=== PATIENT | male | born 1965 | race Caucasian/White ===

== ENCOUNTER 2018-02-01 16:05 | Emergency (ER) | payer OTHER ==
--- NOTE | 2018-02-01 16:18 | UC ---
Ear Complaint HPI - HPI Summary HPI Summary: pt c/o FB sensation in his L ear for about 2 days. states worse after he tried to flush it while in the shower. no uri, fever or discharge. - History of Current Complaint Stated Complaint: LEFT EAR COMPLAINT Time Seen by Provider: 02/01/18 16:12 Hx Obtained From: Patient Alleviating Factors: Nothing Associated Signs/Symptoms: Negative: Trauma to Ear - Allergies/Home Medications Allergies/Adverse Reactions: Allergies Allergy/AdvReac Type Severity Reaction Status Date / Time No Known Allergies Allergy Verified 02/01/18 16:17 PMH/Surg Hx/FS Hx/Imm Hx - Additional Past Medical History Additional PMH: Subdural hematoma from injury - Surgical History Surgical History: Yes Surgery Procedure, Year, and Place: SUB DURAL HEMATOMA SX. CRICOIDECTOMY. TRACH - Social History Occupation: Employed Full-time Lives: With Family Substance Use Type: None - Immunization History Vaccination Up to Date: Yes Review of Systems Constitutional: Negative Skin: Negative Eyes: Negative ENT: Other - FB sensation L ear Respiratory: Negative Cardiovascular: Negative Gastrointestinal: Negative Genitourinary: Negative Motor: Negative Neurovascular: Negative Musculoskeletal: Negative Neurological: Negative Psychological: Negative Is Patient Immunocompromised?: No All Other Systems Reviewed And Are Negative: Yes Physical Exam Triage Information Reviewed: Yes Appearance: Well-Appearing Vital Signs Reviewed: Yes Eyes: Positive: Conjunctiva Clear ENT: Positive: Pharynx normal, TMs normal - R. Obscured by wax on L.. Negative : Nasal congestion, Nasal drainage Neck: Positive: Supple, Nontender, No Lymphadenopathy, Other: - post op scar anterior neck Respiratory: Positive: Lungs clear, Normal breath sounds Cardiovascular: Positive: RRR, No Murmur Abdomen Description: Positive: Nontender, No Organomegaly, Soft Bowel Sounds: Positive: Present Musculoskeletal: Positive: ROM Intact Neurological: Positive: Alert Psychological: Positive: Age Appropriate Behavior Skin Exam: Normal Re-Evaluation - Re-Evaluation Second Eval Change: Improved - L ear clear post flush. TM rodriguez. pt noted hearing is better. Ear Complaint Course/Dx - Course Course Of Treatment: no OM or OE - Differential Dx/Diagnosis Provider Diagnoses: Cerumen impaction L canal Discharge - Sign-Out/Discharge Documenting (check all that apply): Discharge - Discharge Plan Condition: Improved Disposition: HOME Patient Education Materials: Cerumen Impaction (ED) Referrals: Digiovanna,Sandeep J, MD [Primary Care Provider] - If Needed - Billing Disposition and Condition Condition: IMPROVED Disposition: HOME
== END 2018-02-01 16:53 | disposition home or self-care (01) ==
LOC: UCCORT 16:05
DX: H61.22 Impacted cerumen, left ear (principal)
CPT/HCPCS: 99202; G0463

== ENCOUNTER 2018-12-02 20:56 | Emergency (ER) | payer OTHER ==
[2018-12-02] MEDS ORDERED: Albuterol 2.5 MG/3 ML NEB.SOL* (0.083%) INH ONE (22:14)
--- NOTE | 2018-12-02 22:15 | UC ---
General HPI - HPI Summary HPI Summary: 4 day hx of cough, wheezing and sob. no cp or fever. no hx asthma or copd. also c/o being light headed and sometimes dizzy as well. no black or tarry stool. BP at triage 85/67. states his BP is usually normal and not that low. no hx asthma or copd. - History of Current Complaint Chief Complaint: UCRespiratory Stated Complaint: COUGH Time Seen by Provider: 12/02/18 22:09 Hx Obtained From: Patient, Family/Welt Stitch Cleaner Pain Intensity: 7 Associated Signs & Symptoms: Negative: Chest Pain, Diaphoresis - Allergy/Home Medications Allergies/Adverse Reactions: Allergies Allergy/AdvReac Type Severity Reaction Status Date / Time No Known Allergies Allergy Verified 12/02/18 22:01 PMH/Surg Hx/FS Hx/Imm Hx Previously Healthy: Yes - Surgical History Surgical History: Yes Surgery Procedure, Year, and Place: SUB DURAL HEMATOMA SX. CRICOIDECTOMY. [facility] - Family History Known Family History: Positive: Other - no DVT or PE history - Social History Lives: With Family Alcohol Use: Occasionally Substance Use Type: None Smoking Status (MU): Never Smoked Tobacco - Immunization History Vaccination Up to Date: Yes Review of Systems All Other Systems Reviewed And Are Negative: Yes Constitutional: Positive: Negative Skin: Positive: Negative Eyes: Positive: Negative ENT: Positive: Negative Respiratory: Positive: Shortness Of Breath, Cough Cardiovascular: Positive: Negative Gastrointestinal: Positive: Negative Genitourinary: Positive: Negative Motor: Positive: Negative Neurovascular: Positive: Negative Musculoskeletal: Positive: Negative Neurological: Positive: Negative Psychological: Positive: Negative Is Patient Immunocompromised?: No Physical Exam Triage Information Reviewed: Yes Appearance: Well-Appearing Vital Signs: Initial Vital Signs Temp 97.6 F 12/02/18 21:57 Pulse 73 12/02/18 21:57 Resp 16 12/02/18 21:57 BP 85/67 12/02/18 21:57 Pulse Ox 100 12/02/18 21:57 Vital Signs Reviewed: Yes Eyes: Positive: Conjunctiva Clear ENT: Positive: Pharynx normal, TMs normal. Negative: Nasal congestion, Nasal drainage Neck: Positive: Supple, No Lymphadenopathy Respiratory: Positive: No respiratory distress, Decreased breath sounds, Wheezing Cardiovascular: Positive: RRR, No Murmur Abdomen Description: Positive: Nontender, No Organomegaly, Soft Bowel Sounds: Positive: Present Musculoskeletal: Positive: ROM Intact Neurological: Positive: Alert Psychological: Positive: Age Appropriate Behavior Skin Exam: Normal Diagnostics - Radiology No standard instances Radiology Interpretation Completed By: ED Physician - wet read=nad Re-Evaluation - Re-Evaluation First Eval Re-Evaluation Time: 22:43 Change: Improved - much better aeration and lungs clear post tx. pt notes breathing easier. Course/Dx - Course Course Of Treatment: repeat BP's for orthostatics are in the 120's/70's. i think the initial BP was an error. cxr wet read=nad. - Differential Dx - Multi-Symptom Differential Diagnoses: Other - pneumonia. bronchitis. no concern for acs. - Diagnoses Provider Diagnosis: Bronchitis Discharge - Sign-Out/Discharge Documenting (check all that apply): Patient Departure All imaging exams completed and their final reports reviewed: No - Discharge Plan Condition: Stable Disposition: HOME Patient Education Materials: Acute Bronchitis (ED) Referrals: Sandeep Lu MD [Primary Care Provider] - 3 Days Additional Instructions: use the albuterol inhaler 2 puffs every 6 hours - Billing Disposition and Condition Condition: STABLE Disposition: Home - Attestation Statements Provider Attestation: I was available for consult. This patient was seen by the ALAN. The patient was not presented to, seen by, or examined by me. -Hawk
[2018-12-02 22:25] VITALS: BP 120/78
[2018-12-02] MEDS ORDERED: Albuterol HFA INHALER* 8 gm MDI INH ONE (22:47)
--- NOTE | 2018-12-03 11:12 | UC ---
- Progress Note Progress Note: Chest x-ray reading from December 02, 2018 I radiologist comes back as no acute disease process. The provider interpretation from the same date is also no acute disease process therefore there is no discrepancy. Re-Evaluation - Re-Evaluation First Eval Re-Evaluation Time: 22:43 Change: Improved - much better aeration and lungs clear post tx. pt notes breathing easier. Course/Dx - Diagnoses Provider Diagnoses: Bronchitis Discharge - Sign-Out/Discharge Documenting (check all that apply): Patient Departure All imaging exams completed and their final reports reviewed: Yes - Discharge Plan Condition: Stable Disposition: HOME Patient Education Materials: Acute Bronchitis (ED) Referrals: Sandeep Lu MD [Primary Care Provider] - 3 Days Additional Instructions: use the albuterol inhaler 2 puffs every 6 hours - Billing Disposition and Condition Condition: STABLE Disposition: Home
== END 2018-12-02 22:56 | disposition home or self-care (01) ==
LOC: UCCORT 20:56
DX: J40 Bronchitis, not specified as acute or chronic (principal); R42 Dizziness and giddiness
CPT/HCPCS: 71046; 99213; A9270-GY; G0463

== ENCOUNTER 2019-04-07 17:32 | Emergency (ER) | payer OTHER ==
--- OUTSIDE RECORDS SUMMARY | 2019-04-07 17:37 | XMS REPORT | Continuity of Care Document ---
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 Payers Date Identification Numbers Payment Provider Subscriber Effective: 2016 Policy Number: [id number] [employer] Willy Carmona PayID: [id number] [address] [place] [address] Onset: 2017 Policy Number: [id number] [facility] Willy Carmona PayID: [id number] [facility] [address] [place] [address] Effective: 2015 Policy Number: [id number] [employer] Willy Carmona Expires: 2016 PayID: [id number] [address] [address] [place] [address] Problems Active Problems Provider Date Restless legs Sandeep Lu MD Onset: 08/08/2012 Testicular hypofunction Sandeep Lu MD Onset: 03/28/2012 Vitamin D deficiency Sandeep Lu MD Onset: 03/28/2012 Obstructive sleep apnea syndrome Sandeep Lu MD Onset: 10/02/2010 Elevated blood-pressure reading without Sandeep Lu MD Onset: 2009 diagnosis of hypertension Gastroesophageal reflux disease Sandeep Lu MD Onset: 10/11/2009 Obesity Sandeep Lu MD Onset: 10/11/2009 Mixed hyperlipidemia Sandeep Lu MD Onset: 10/13/2008 Insomnia Sandeep Lu MD Onset: 11/02/2014 Headache Sandeep Lu MD Onset: 11/14/2016 Inactive Problems Stenosis of larynx Sandeep Lu MD Onset: 04/21/2010 Inactive: 11/18/2017 Injury of facial nerve Sandeep Lu MD Onset: 04/06/2008 Inactive: 11/18/2017 Pure hypercholesterolemia Sandeep Lu MD Onset: 11/02/2014 Inactive: 11/18/2017 Social History Type Date Description Comments Sex Unknown Marital Status Single Lives With Female Partner Occupation [employer]s [employer] ETOH Use Rarely consumes alcohol Tobacco Use Start: Unknown Patient has never smoked Smoking Status Reviewed: 04/03/19 Patient has never smoked Allergies, Adverse Reactions, Alerts Description No Known Drug Allergies Medications Active Medications SIG Qnty Indications Ordering Date Provider Fluticasone 1 [place] Per 16units H66.003 Wendyiovankeon, 05/21/2018 Propionate Nostril Twice A MD Sandeep 50mcg/Act Day For Congestion Suspension Naproxen Sodium take one tablet by 60tabs M77.12 Digiovanna, 01/13/2018 550mg mouth twice a day MD Sandeep Tablets with food as needed for elbow pain and numbness Excedrin Migraine as needed migraine OTC Unknown has [id number] Tablets Vitamin D-1000 3 by mouth every OTC E55.9 Digiovanna, Maximum Strength day MD Sandeep 1000Unit Tablets History Medications Omeprazole 1 by mouth 30caps R10.9 Wendyiolee, 02/11/2019 - 40mg Capsules every Am MD Sandeep 04/03/2019 Ranitidine HCL take 1 capsule 60caps R10.9 Wendyiovankeon, 01/26/2019 - 150mg twice daily MD Sandeep 02/11/2019 Capsules before meals Amoxicillin/Clavulanat 1 pill twice a 20tabs H66.003 Wendyiovankeon, 2017 - e Potassium day with food MD Sandeep 06/10/2018 875-125mg for 10 days Tablets Amoxicillin 1 by mouth 20tabs H66.003 Wendyiovankeon, 05/21/2018 - 875mg Tablets twice a day MD Sandeep 05/31/2018 for 10 days Triamcinolone apply to rash 15gm R21 Digiovankeon, 04/19/2017 - Acetonide 2-3 times Roxanna, CORINA 11/19/2018 0.1% Ointment daily for itching Naproxen Sodium 1 by mouth 60tabs M54.5 Digiovanna, 04/16/2016 - 550mg every 12 hours Roxanna, CORINA 04/01/2017 Tablets for 2 weeks then as needed Ketoconazole Apply Twice A 30units B35.6 Digiovanna, 04/06/2016 - 2% Cream Day To Rash as MD Sandeep 11/19/2018 Directed Cyclobenzaprine HCL take 1 tablet 20tabs M54.5 Wendyiolee, 04/06/2016 - 10mg by mouth every MD Sandeep 05/06/2016 Tablets night at bedtime as needed for back spasm/pain Amitriptyline HCL take tablet by 30tabs R51 Tabitha, 12/30/2015 - 25mg mouth at MD Sandeep 01/25/2016 Tablets bedtime Sumatriptan Succinate take one 30tabs R51 Wendyiolee, 12/30/2015 - tablet by MD Sandeep 08/14/2017 50mg Tablets mouth once a day as needed for migraine headache, may repeat once; maximum daily dose=2, max 6/week Amoxicillin 1 by mouth Unknown 12/26/2015 - 500mg three times a 01/05/2016 Capsules day Amoxicillin 1 by mouth 20tabs 388.70 Andrew Gasca, 07/08/2015 - 875mg Tablets twice a day DO 07/18/2015 Fluticasone Propionate 1 spray each 16units 388.70 Andrew Gasca, 2014 - nostril twice DO 07/18/2015 50mcg/Act Suspension a day No Active Medications Unknown 11/02/2014 - 11/02/2014 Zolpidem Tartrate 1/2 or 1 po 30tabs Digiovankeon, 02/16/2013 - 5mg qhs prn sleep Sandeep Mora MD 11/02/[address] 1 by mouth Unknown - 500mg Tablets twice a day 11/19/2018 Immunizations CPT Code Status Date Vaccine Reaction Lot # [id number] Given 09/02/2017 Tdap (Adacel) Ages 7 And Above Only 50425 Given 08/03/2009 Afluria Or Fluvirin Flu Vac Intramuscular Q2039 Refused 11/19/2018 Flu Vaccine NOS NOT GETTING 80330 Refused 08/08/2012 Afluria Or Fluvirin Flu Vac Intramuscular DOESN'T WANT Vital Signs Date Vital Result Comment 04/03/2019 2:32pm Body Temperature 98.8 F tympanic Weight 206.00 lb Heart Rate 76 /min BP Systolic 100 mmHg BP Diastolic 70 mmHg Respiratory Rate 16 /min Height 67.5 inches 5'7.50" BMI (Body Mass Index) 31.8 kg/m2 02/11/2019 10:35am Weight 206.00 lb Heart Rate 60 /min BP Systolic 122 mmHg BP Diastolic 76 mmHg Respiratory Rate 18 /min 11/19/2018 2:45pm Weight 203.00 lb Heart Rate 72 /min BP Systolic 120 mmHg BP Diastolic 68 mmHg Respiratory Rate 18 /min Height 67.5 inches 5'7.50" BMI (Body Mass Index) 31.3 kg/m2 09/23/2018 11:28am Body Temperature 98.8 F tympanic Weight 217.00 lb Heart Rate 76 /min BP Systolic 120 mmHg BP Diastolic 76 mmHg Respiratory Rate 18 /min Height 67.5 inches 5'7.50" BMI (Body Mass Index) 33.5 kg/m2 05/31/2018 10:32am Body Temperature 97.9 F Weight 216.00 lb Heart Rate 70 /min BP Systolic 114 mmHg BP Diastolic 78 mmHg Respiratory Rate 18 /min Height 67.5 inches 5'7.50" BMI (Body Mass Index) 33.3 kg/m2 05/21/2018 1:31pm Body Temperature 97.6 F Weight 203.00 lb Heart Rate 60 /min BP Systolic 118 mmHg BP Diastolic 62 mmHg Respiratory Rate 18 /min Height 67.5 inches 5'7.50" O2 % BldC Oximetry 97 % Ra BMI (Body Mass Index) 31.3 kg/m2 01/13/2018 3:16pm Weight 203.00 lb Heart Rate 74 /min BP Systolic 118 mmHg BP Diastolic 74 mmHg Respiratory Rate 18 /min Height 67.5 inches 5'7.50" BMI (Body Mass Index) 31.3 kg/m2 11/18/2017 2:56pm Weight 205.00 lb Heart Rate 72 /min BP Systolic 120 mmHg BP Diastolic 70 mmHg Respiratory Rate 18 /min Height 67.5 inches 5'7.50" BMI (Body Mass Index) 31.6 kg/m2 09/18/2017 3:58pm Weight 208.00 lb Heart Rate 74 /min BP Systolic 122 mmHg BP Diastolic 72 mmHg Respiratory Rate 18 /min Height 68 inches 5'8" BMI (Body Mass Index) 31.6 kg/m2 08/14/2017 4:25pm Body Temperature 98.9 F tympanic Weight 213.00 lb Heart Rate 80 /min BP Systolic 120 mmHg BP Diastolic 74 mmHg Respiratory Rate 18 /min Height 68 inches 5'8" BMI (Body Mass Index) 32.4 kg/m2 06/17/2017 2:38pm Weight 208.00 lb Heart Rate 74 /min BP Systolic 102 mmHg BP Diastolic 60 mmHg Height 68 inches 5'8" BMI (Body Mass Index) 31.6 kg/m2 04/19/2017 8:34am Weight 208.00 lb Heart Rate 72 /min BP Systolic 118 mmHg BP Diastolic 70 mmHg Respiratory Rate 18 /min Height 68 inches 5'8" BMI (Body Mass Index) 31.6 kg/m2 11/14/2016 11:01am Weight 210.00 lb Heart Rate 74 /min BP Systolic 120 mmHg BP Diastolic 80 mmHg Respiratory Rate 18 /min Height 68 inches 5'8" BMI (Body Mass Index) 31.9 kg/m2 07/04/2016 3:34pm Weight 209.00 lb Heart Rate 74 /min BP Systolic 134 mmHg BP Diastolic 76 mmHg Respiratory Rate 17 /min Height 68 inches 5'8" 07/04/16 BMI (Body Mass Index) 31.8 kg/m2 04/16/2016 9:38am Weight 218.00 lb Heart Rate 78 /min BP Systolic 128 mmHg BP Diastolic 74 mmHg Respiratory Rate 18 /min Height 67.5 inches 5'7.50" BMI (Body Mass Index) 33.6 kg/m2 04/06/2016 1:32pm Weight 214.00 lb Heart Rate 74 /min BP Systolic 120 mmHg BP Diastolic 80 mmHg Respiratory Rate 18 /min Height 67.5 inches 5'7.50" BMI (Body Mass Index) 33.0 kg/m2 01/25/2016 1:53pm Weight 214.00 lb Heart Rate 74 /min BP Systolic 120 mmHg BP Diastolic 70 mmHg Respiratory Rate 18 /min Height 67.5 inches 5'7.50" BMI (Body Mass Index) 33.0 kg/m2 12/30/2015 8:46am Weight 210.00 lb Heart Rate 74 /min BP Systolic 138 mmHg L/Reg BP Diastolic 84 mmHg L/Reg Respiratory Rate 18 /min Height 67.5 inches 5'7.50" BMI (Body Mass Index) 32.4 kg/m2 07/08/2015 1:02pm Body Temperature 99.6 F Weight 212.00 lb Heart Rate 70 /min BP Systolic 120 mmHg BP Diastolic 80 mmHg Respiratory Rate 18 /min Height 67.5 inches 5'7.50" BMI (Body Mass Index) 32.7 kg/m2 11/02/2014 2:45pm Weight 208.00 lb Heart Rate 74 /min BP Systolic 128 mmHg BP Diastolic 72 mmHg Respiratory Rate 18 /min Height 67.5 inches 5'7.50" Done On 04/28/2014 BMI (Body Mass Index) 32.1 kg/m2 04/28/2014 4:17pm Weight 210.00 lb Heart Rate 80 /min BP Systolic 110 mmHg BP Diastolic 70 mmHg Respiratory Rate 14 /min Height 67.5 inches 5'7.50" Done On 04/28/2014 01/27/2014 4:15pm Weight 211.00 lb Heart Rate 80 /min BP Systolic 124 mmHg BP Diastolic 88 mmHg Respiratory Rate 18 /min 12/25/2013 11:08am Body Temperature 98.6 F Weight 208.00 lb Heart Rate 70 /min BP Systolic 124 mmHg BP Diastolic 70 mmHg Respiratory Rate 18 /min Height 68 inches 5'8" Results Test Date Facility Test Result H/L Range Note Laboratory test 03/25/2019 [facility] Troponin-I < 0.015 1, 2 finding (315)- - ng/mL Laboratory test 03/25/2019 [facility] Troponin-I < 0.015 3 finding (315)- - ng/mL Comprehensive 03/25/2019 [facility] Glucose 99 mg/dL N 74-106 Metabolic Panel (315)- - BUN 18 mg/dL N 7-18 Creatinine 0.9 mg/dL N 0.6-1.3 Glom Filtration Rate, Estimate >60 mL/min >60 If >60 mL/min >60 4 BUN/Creat 20.0 ratio Sodium 138 mmol/L N 136-145 Potassium 3.7 mmol/L N 3.5-5.1 Chloride 106 mmol/L N 98-107 Carbon Dioxide 27 mmol/L N 21-32 Anion Gap 5 mEq/L Low 8-16 Calcium 8.9 mg/dL N 8.5-10.1 Total Protein 7.5 g/dL N 6.4-8.2 Albumin 3.9 g/dL N 3.4-5.0 Globulin 3.6 g/dL N 1.9-4.3 Alb/Glob 1.1 ratio Bilirubin,Total 0.3 mg/dL N 0.2-1.0 Sgot/Ast 23 U/L N 15-37 SGPT/Alt 42 U/L N 12-78 Alkaline Phosphatase 105 U/L N 45-117 CBS W/Automated Diff 03/25/2019 [facility] White Blood 5.6 K/uL N 3.4-10.5 (315)- - Count Red Blood Count 5.20 M/uL N 4.20-5.80 Hemoglobin 15.1 gm/dL N 12.8-17.0 Hematocrit 44.6 % N 38.0-48.0 Mean Cell Volume 85.8 fl N 80.0-96.0 Mean Corpuscular HGB 29.0 pg N 27.0-33.0 Mean Corpuscular HGB Conc 33.9 g/dL N 31.7-36.0 Platelet Count 244 K/uL N 155-360 Red Cell Distri Width SD 41.2 fl N 36-51 Red Cell Distri Width %CV 13.3 % N 11.6-15.8 Mean Platelet Volume 8.9 fl N 6.6-10.6 Neut% 60.4 % N 33.0-73.0 Lymph % 26.4 % N 20.0-42.0 Republic % 11.1 % High 0.0-10.0 Eo% 1.2 % N 0.0-6.6 Bas% 0.4 % N 0.0-1.1 Immature Grans 0.5 % N 0.0-5.0 NRBC % 0.0 /100WBC < 10/ 100 WBC Neut# 3.39 K/uL N 1.8-7.0 Lymph # 1.48 K/uL N 1.0-4.0 Republic # 0.62 K/uL N 0.0-0.8 Eos # 0.07 K/uL N 0.0-0.5 Baso # 0.02 K/uL N 0.0-0.1 Immature Grans Absolute 0.03 K/uL NRBC # 0.00 K/uL CBC with Auto Diff-fcmg 11/24/2018 [facility] WBC 5.4 K/uL 4.1-11.0 5 RBC 5.39 M/uL 4.60-6.10 Hemoglobin 15.5 gm/dL 13.5-18.0 Hematocrit 45.6 % 41.0-53.0 MCV 84.6 fL 80.0-97.0 MCH 28.7 pg 27.0-32.0 MCHC 34.0 g/dL 32.0-36.0 RDW 13.6 % 11.5-14.5 PLT Count 268 K/ul 140-400 MPV 7.9 FL 7.1-10.7 Neutrophil 67.0 % 35.0-75.0 Lymphocyte 21.7 % 16.0-52.0 Monocyte 9.6 % 2.0-10.0 Eosinophil 1.2 % 0.0-5.0 Basophil 0.5 % 0.0-4.0 Abs Neutrophils 3.6 K/uL 2.1-8.0 Abs Lymphocytes 1.2 K/uL 0.8-5.5 Abs Monocytes 0.5 K/uL 0.1-1.0 Abs Eosinophils 0.1 K/uL 0.0-0.5 Abs Basophils 0.0 K/uL 0.0-0.3 Laboratory test 11/24/2018 [facility] Vitamin D 25 Hydroxy 40 ng/mL 30-100 6 finding Laboratory test 11/24/2018 [facility] Cholesterol 216 mg/dL High 50-199 finding HDL 48 mg/dL 29-71 7 Basic (BMP) 11/24/2018 [facility] Sodium 139 mmol/L 135-146 8 Potassium 4.3 mmol/L 3.5-5.2 Chloride# 103 mmol/L 97-110 9 Carbon Dioxide 29 mmol/L 24-34 Glucose 102 mg/dL 70-105 BUN 18 mg/dL 6-26 Creatinine 0.8 mg/dL 0.5-1.4 Calcium 9.6 mg/dL 8.5-10.2 Non Stacy Egfr >60 >60 10 Stacy Egfr >60 >60 11 Anion Gap 7 mmol/L 5-15 12 Lipid 11/20/2017 [facility] Cholesterol 231 mg/dL High 50-199 13 Triglycerides 226 mg/dL High 30-200 HDL 54 mg/dL 29-71 14 Chol/ HDL Ratio 4.3 ratio 4.0-6.7 VLDL 45 mg/dL High 2-29 LDL (Calc) 132 mg/dL High 20-99 15 Laboratory test finding 11/20/2017 [facility] Vitamin D 25 Hydroxy 22 ng/mL Low 30-100 16 Hepatitis C Virus Antibody NON REACTIVE S/CORatio(Macario Non Reactive 17 Laboratory test finding 09/02/2017 [facility] CK 107 U/L N 39-308 18 (315)- - Troponin-I < 0.015 ng/mL 19 Ua RFX Micro & 09/02/2017 [facility] Urine Color YELLOW Yellow Culture II (315)- - Urine Clarity CLEAR Clear Urine Glucose - Dipstick NEGATIVE mg/dL Negative Urine Bilirubin - Dipstick NEGATIVE Negative Urine Ketone TRACE mg/dL High Negative Urine Specific Halsey 1.025 N 1.010-1.030 Urine Blood TRACE Negative Urine PH 6.0 Low 6.5-7.5 Urine Protein - Dipstick NEGATIVE mg/dL Negative Urine Urobilinogen - Dipstick 0.2 E.U./dL N 0.2-1.0 Urine Nitrite - Dipstick NEGATIVE Negative Urine Leuk Esterase NEGATIVE Negative Source: URINE, CLEAN CAT <SEE NOTE> 20 Comprehensive Metabolic 09/02/2017 [facility] Glucose 98 mg/dL N 74-106 Panel (315)- - BUN 20 mg/dL High 7-18 Creatinine 0.9 mg/dL N 0.6-1.3 Glom Filtration Rate, Estimate >60 mL/min >60 If >60 mL/min >60 21 BUN/Creat 22.2 ratio Sodium 140 mmol/L N 136-145 Potassium 3.7 mmol/L N 3.5-5.1 Chloride 106 mmol/L N 98-107 Carbon Dioxide 27 mmol/L N 21-32 Anion Gap 7 mEq/L Low 8-16 Calcium 8.2 mg/dL Low 8.5-10.1 Total Protein 7.2 g/dL N 6.4-8.2 Albumin 3.6 g/dL N 3.4-5.0 Globulin 3.6 g/dL N 1.9-4.3 Alb/Glob 1.0 ratio Bilirubin,Total 0.3 mg/dL N 0.2-1.0 Sgot/Ast 22 U/L N 15-37 SGPT/Alt 50 U/L N 12-78 Alkaline Phosphatase 92 U/L N 45-117 CBS W/Automated Diff 09/02/2017 [facility] White Blood 5.3 K/uL N 3.4-10.5 (315)- - Count Red Blood Count 4.77 M/uL N 4.20-5.80 Hemoglobin 13.6 gm/dL N 12.8-17.0 Hematocrit 40.7 % N 38.0-48.0 Mean Cell Volume 85.3 fl N 80.0-96.0 Mean Corpuscular HGB 28.5 pg N 27.0-33.0 Mean Corpuscular HGB Conc 33.4 g/dL N 31.7-36.0 Platelet Count 207 K/uL N 150-400 Red Cell Distri Width SD 41.4 fl N 36-51 Red Cell Distri Width %CV 13.7 % N 11.6-15.8 Mean Platelet Volume 9.2 fL N 6.6-10.6 Neut% 64.9 % N 33.0-73.0 Lymph % 21.1 % N 20.0-42.0 Republic % 12.7 % High 0.0-10.0 Eo% 1.1 % N 0.0-6.6 Bas% 0.2 % N 0.0-1.1 Neut# 3.41 K/uL N 1.8-7.0 Lymph # 1.11 K/uL N 1.0-4.0 Republic # 0.67 K/uL N 0.0-0.8 Eos # 0.06 K/uL N 0.0-0.5 Baso # 0.01 K/uL N 0.0-0.1 Laboratory test 06/20/2017 [facility] Total Testosterone 351 ng/dL 285-950 22 finding Adult Male Lyme Igm/Igg AB -RL 06/17/2017 [facility] Lyme Igm/Igg AB @ NEGATIVE (Neg) 23 CBC With Auto Diff 06/17/2017 [facility] WBC 5.0 K/uL 4.1-11.0 24 RBC 4.83 M/uL 4.60-6.10 Hemoglobin 13.6 gm/dL 13.5-18.0 Hematocrit 41.7 % 41.0-53.0 MCV 86.4 fL 80.0-97.0 MCH 28.1 pg 27.0-32.0 MCHC 32.5 g/dL 32.0-36.0 RDW 14.1 % 11.5-14.5 PLT Count 221 K/ul 140-400 Neutrophil 62.7 % 35.0-75.0 Lymphocyte 27.1 % 16.0-52.0 Monocyte 8.2 % 2.0-10.0 Eosinophil 1.4 % 0.0-5.0 Basophil 0.6 % 0.0-4.0 Abs Neutrophils 3.1 K/uL 2.1-8.0 Abs Lymphocytes 1.4 K/uL 0.8-5.5 Abs Monocytes 0.4 K/uL 0.1-1.0 Abs Eosinophils 0.1 K/uL 0.0-0.5 Abs Basophils 0.0 K/uL 0.0-0.3 Laboratory test 06/17/2017 [facility] Total Testosterone 213 ng/dL Low 285- 950 finding Adult Male Laboratory test 06/17/2017 [facility] Cortisol 3.1 g/dL 25 finding Laboratory test 06/17/2017 [facility] TSH 1.57 uIU/mL 0.35-4.94 finding Basic (BMP) 04/19/2017 [facility] Sodium 142 mmol/L 135-146 26, 27 Potassium 4.6 mmol/L 3.5-5.2 Chloride# 101 mmol/L 97-110 28 Carbon Dioxide 28 mmol/L 24-34 Glucose 104 mg/dL 70-105 BUN 15 mg/dL 6-26 Creatinine 1.0 mg/dL 0.5-1.4 Calcium 9.4 mg/dL 8.5-10.2 Non Stacy Egfr >60 >60 29 Stacy Egfr >60 >60 30 Anion Gap 18 mmol/L High 7-16 31 Lipid Treatment 04/19/2017 [facility] Cholesterol 245 mg/dL High 50-199 Triglycerides 249 mg/dL High 30-200 HDL 51 mg/dL 29-71 32 Chol/ HDL Ratio 4.8 ratio 4.0-6.7 VLDL 50 mg/dL High 2-29 LDL (Calc) 145 mg/dL High 20-99 33 Alt 51 U/L High 3-42 Ast 37 U/L 8-42 Laboratory test finding 12/24/2013 N2N/CCD Import Alt 54.0 U/L 21.0- 72.0 Ast 32.0 U/L 17.0-59.0 BUN 19.0 mg/dL 9.0-21.0 BUN/Creat Ratio 19.0 ratio 12.0-20.0 Calcium 9.2 mg/dL 8.7-10.5 Chloride 105.0 mmol/L 98.0-107.0 Co2 25.0 mmol/L 22.0-30.0 Creatinine-Serum 1.0 mg/dL 0.8-1.5 Glucose 101.0 mg/dL 75.0-110.0 Potasium 4.3 mmol/L 3.6-5.0 Sodium 139.0 mmil/L 137.0-145.0 Vitamin D 12.0 ng/mL Low 30.0-100.0 eGFR 84.1 Lipid Panel 12/24/2013 N2N/CCD Import Chol/HDL Ratio 5.1 ratio Cholesterol 229.0 mg/dL High 50.0-199.0 HDL 45.0 mg/dL 29.0-67.0 LDL, Calculated 142.8 mg/dL High 20.0-129.0 Triglycerides 206.0 mg/dL 30.0-249.0 vLDL 41.2 ng/dL 1 CHEST PAIN LEG ARM NUMBNESS LT 2 0.0 - 0.045 ng/mL: Normal 0.046 - 0.5 ng/mL: Suggestive 0.6 - 1.5 ng/mL: Consistent 3 0.0 - 0.045 ng/mL: Normal 0.046 - 0.5 ng/mL: Suggestive 0.6 - 1.5 ng/mL: Consistent 4 Note: Persistent reduction for 3 months or more in an eGFR <60 mL/min/1.73 m2 defines CKD. Patients with eGFR values >/=60 mL/min/1.73 m2 may also have CKD if evidence of persistent proteinuria is present. The original MDRD equation for estimated GFR is not valid for patients less than 18 years of age. Additional information may be found at www.kdoqi.org. 5 Fastin hours 6 Clinical Guidelines for recommended serum 25(OH)Vitamin D Deficient at less than 20 ng/mL Insufficient at 20 to <30 ng/mL Sufficient at 30-100 ng/mL Toxicity at greater than 100 ng/mL 7 Per NCEP ATP III Guidelines: Results lower than 40 mg/dL are suggestive of increased risk for coronary artery disease. Results > or=to 60 mg/dL are considered a negative risk factor. 8 Updated reference range on new analyzer 9 Updated reference range on new analyzer 10 Concerning GFR Guidelines: Normal function or mild renal disease, if clinically at risk: >/=60 mL/min Moderately decreased: 30-59 Severely decreased: 15-29 Renal failure: <15 Glomerular Filtration Rate (GFR) is estimated based on the MDRD equation, which assumes a steady state for creatinine as recommended by the National Kidney Disease Education Program in conjunction with the National Institutes of Health and the National Kidney Foundation. Clinical conditions in which it may be necessary to measure GFR by using clearance methods include extremes of age and body size, severe malnutrition or obesity, diseases of skeletal muscle, paraplegia or quadriplegia, vegetarian diet, rapidly changing kidney function, and calculation of the dose of potentially toxic drugs that are excreted by the kidneys. 11 Concerning GFR Guidelines for Americans: Normal function or mild renal disease, if clinically at risk: >/=60 mL/min Moderately decreased: 30-59 Severely decreased: 15-29 Renal failure: <15 12 Updated Reference Range 13 soon Fastin hours soon Fastin hours soon Fastin hours 14 Per NCEP ATP III Guidelines: Results lower than 40 mg/dL are suggestive of increased risk for coronary artery disease. Results > or=to 60 mg/dL are considered a negative risk factor. 15 Per NCEP ATP III Guidelines: Normal Population <130 Patients with medical conditions: CHD/DM Optimal: <100 Borderline high: 130-159 High: 160-189 Very high: >189 16 Clinical Guidelines for recommended serum 25(OH)Vitamin D Deficient at less than 20 ng/mL Insufficient at 20 to <30 ng/mL Sufficient at 30-100 ng/mL Toxicity at greater than 100 ng/mL 17 S/CO Ratio >/=1.0 is REACTIVE. S/CO <5.0 is Low Reactive. S/CO >/= 5.0 is High Reactive. Effective Jun 21, 2017 all anti-HCV reactive samples are sent for quantitative PCR confirmation. 18 L LEG INJURY 19 0.0 - 0.045 ng/mL: Normal 0.046 - 0.5 ng/mL: Suggestive 0.6 - 1.5 ng/mL: Consistent 20 URINE, CLEAN CATCH 21 Note: Persistent reduction for 3 months or more in an eGFR <60 mL/min/1.73 m2 defines CKD. Patients with eGFR values >/=60 mL/min/1.73 m2 may also have CKD if evidence of persistent proteinuria is present. The original MDRD equation for estimated GFR is not valid for patients less than 18 years of age. Additional information may be found at www.kdoqi.org. 22 SOON 23 A Negative serologic test for Lyme Disease indicates no serologic evidence of infection with B burgdorferi at the time this specimen was collected. A repeat specimen should be collected in 2 to 4 weeks if clinically indicated. Unless otherwise specified, testing performed [place] [address] 24 call him w/ results 25 CORTISOL REFERENCE RANGE: 7-9AM 4.3 - 22.4 MCG/DL 4-6PM 3.1 - 16.7 MCG/DL LATE AFTERNOON LEVELS FALL TO APPROX. 1/2 AM VALUE. RESULTS REVIEWED Unless otherwise specified, testing [place] [address] 26 Patient will have drawn at [facility] and was given lab order-smw 27 Updated reference range on new analyzer 28 Updated reference range on new analyzer 29 Concerning GFR Guidelines: Normal function or mild renal disease, if clinically at risk: >/=60 mL/min Moderately decreased: 30-59 Severely decreased: 15-29 Renal failure: <15 Glomerular Filtration Rate (GFR) is estimated based on the MDRD equation, which assumes a steady state for creatinine as recommended by the National Kidney Disease Education Program in conjunction with the National Institutes of Health and the National Kidney Foundation. Clinical conditions in which it may be necessary to measure GFR by using clearance methods include extremes of age and body size, severe malnutrition or obesity, diseases of skeletal muscle, paraplegia or quadriplegia, vegetarian diet, rapidly changing kidney function, and calculation of the dose of potentially toxic drugs that are excreted by the kidneys. 30 Concerning GFR Guidelines for Americans: Normal function or mild renal disease, if clinically at risk: >/=60 mL/min Moderately decreased: 30-59 Severely decreased: 15-29 Renal failure: <15 31 Updated reference range on new analyzer 32 Per NCEP ATP III Guidelines: Results lower than 40 mg/dL are suggestive of increased risk for coronary artery disease. Results > or=to 60 mg/dL are considered a negative risk factor. 33 Per NCEP ATP III Guidelines: Normal Population <130 Patients with medical conditions: CHD/DM Optimal: <100 Borderline high: 130-159 High: 160-189 Very high: >189 Procedures Date Code Description Status 05/31/2018 23319 Visual Screening Test Completed 08/14/2017 01241 Visual Screening Test Completed 04/19/2017 89496 Electrocardiogram Complete Completed 04/16/2016 34434 X-Ray Spine Lumbosacral Complete W/Oblique Views Completed 12/30/2015 11754 Visual Screening Test Completed Encounters Type Date Location Provider Dx Diagnosis Office Visit 02/11/2019 LAURY Lu, R10.9 Unspecified abdominal 10:45a MD Sandeep pain Office Visit 11/19/2018 LAURY Lu Z00.00 Encntr for general 3:00p MD Sandeep adult medical exam w/o abnormal findings Z12.11 Encounter for screening for malignant neoplasm of colon E78.2 Mixed hyperlipidemia E55.9 Vitamin D deficiency, unspecified G47.33 Obstructive sleep apnea (adult) (pediatric) K21.9 Gastro-esophageal reflux disease without esophagitis Z68.31 Body mass index (BMI) 31.0-31.9, adult Office Visit 09/23/2018 11:30a Roxanna Casanova, S40.021A Contusion of RIGHT SCRIPT WRITER upper arm, initial encounter S40.861A Insect bite (nonvenomous) of RIGHT upper arm, init encntr Office Visit 05/31/2018 10:30a Sandeep Casanova, H66.003 Acute suppr otitis MD media w/o spon rupt ear drum, bilateral Z68.33 Body mass index (BMI) 33.0-33.9, adult Office Visit 05/21/2018 1:45p Sandeep Casanova H66.003 Acute suppr otitis MD media w/o spon rupt ear drum, bilateral Z68.31 Body mass index (BMI) 31.0-31.9, adult Office Visit 01/13/2018 3:30p Sandeep Casanova, M77.12 Lateral epicondylitisMD LEFT elbow Office Visit 11/18/2017 3:00p Sandeep Casanova, Z00.00 Encntr for general MD adult medical exam w/o abnormal findings G47.33 Obstructive sleep apnea (adult) (pediatric) K21.9 Gastro-esophageal reflux disease without esophagitis E66.9 Obesity, unspecified E78.2 Mixed hyperlipidemia E55.9 Vitamin D deficiency, unspecified E29.1 Testicular hypofunction Z11.59 Encounter for screening for other viral diseases R09.82 Postnasal drip Office Visit 09/18/2017 4:15p Sandeep Casanova, S81.812A Laceration without MD foreign body, LEFT lower leg, init encntr S81.812A Laceration without foreign body, LEFT lower leg, init encntr R55 Syncope and collapse R55 Syncope and collapse Office Visit 08/14/2017 4:15p Roxanna Casanova, SCRIPT WRITER R51 Headache G47.00 Insomnia, unspecified R53.83 Other fatigue Office Visit 06/17/2017 3:00p Sandeep Casanova, R61 Generalized MD hyperhidrosis R53.83 Other fatigue Office Visit 04/19/2017 8:30a Roxanna Casanova, R21 Rash and other SCRIPT WRITER nonspecific skin eruption R07.9 Chest pain, unspecified Office Visit 11/14/2016 11:00a Sandeep Casanova MD Z00.00 Encntr for general adult medical exam w/o abnormal findings R51 Headache E78.00 Pure hypercholesterolemia, unspecified G47.00 Insomnia, unspecified Z12.11 Encounter for screening for malignant neoplasm of colon E66.9 Obesity, unspecified Z12.5 Encounter for screening for malignant neoplasm of prostate G47.33 Obstructive sleep apnea (adult) (pediatric) Office Visit 04/16/2016 9:30a Roxanna Casanova SCRIPT WRITER M54.5 Low back pain Office Visit 04/06/2016 2:00p Sandeep Casanova MD M54.5 Low back pain B35.6 Tinea cruris Office Visit 01/25/2016 2:00p Sandeep Casanova MD R51 Headache Office Visit 12/30/2015 8:45a Sandeep Casanova MD R51 Headache Office Visit 07/08/2015 1:00p [facility] Xena Andino PA 388.70 Otalgia & Earache Unspec 784.0 Headache 787.03 Vomiting Alone Plan of Treatment Future Appointment(s):11/24/2019 3:45 pm - Sandeep Lu MD at [facility]2018 - Roxanna Lu, NPR07.89 Other chest painNew Orders:Stress Test - Exercise, Ordered: 04/03/19Comments:Recommend exercise stress testMonitor symptoms and return to ER for sustained chest pain or chest pain associated with SOB, diaphoresis(sweatiness) or any exertional chest pain.Follow up:PRN for recurrent painZ68.31 Body mass index (BMI) 31.0-31.9, adultComments: Continue attempts at weight loss.Increase daily exercise.
[2019-04-07 17:45] VITALS: BP 118/77
--- NOTE | 2019-04-07 18:23 | UC ---
General HPI - HPI Summary HPI Summary: Patient presents to urgent care with his . Patient's a 53-year-old gentleman with no medical history and no medication. Patient states Ronald 3 weeks ago he was evaluated in the emergency department for chest pain. Patient had a negative workup and was discharged home to be followed up with his primary. Patient is scheduled for an outpatient cardiac stress test on April 21. Patient states today at work he felt less a chest pain that radiated to his left arm. Patient states he felt short of breath bloated and like his extremities 4 became heavy. Patient was not lightheaded but state he had no energy. Patient states he's sat mostly at work and wasn't very active. Patient states currently he only feels very tired but no physical pain or weakness. Patient states he hasn't had much of an appetite and feels very bloated after eating. Patient without any abdominal pain. No diarrhea. No tick bites. No dysuria. No back pain. No joint pain. Patient does not take any [id number] medication. Patient does not smoke or use illicit substances. Patient states today he just cut scared and his decided he should get checked again. Patient's medications reviewed this visit. 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 CRICOIDECTOMY. TRACH - Family History Known Family History: Positive: Other - no DVT or PE history, Non-Contributory - Social History Occupation: Employed Full-time Lives: With Family Alcohol Use: Occasionally Substance Use Type: None Smoking Status (MU): Never Smoked Tobacco - Immunization History Vaccination Up to Date: Yes Review of Systems All Other Systems Reviewed And Are Negative: Yes Skin: Positive: Negative, Bruising Eyes: Positive: Negative ENT: Positive: Negative Cardiovascular: Positive: Chest Pain - resolved Gastrointestinal: Positive: Other - bloating, no appetitis, fullenss Genitourinary: Positive: Negative Motor: Positive: Negative, Other - ext felt heavy x 4. Negative: Weakness Neurological: Positive: Negative Psychological: Positive: Negative Is Patient Immunocompromised?: No Physical Exam - Summary Physical Exam Summary: Vital Signs Reviewed: Yes A+Ox3, no distress Eyes: Conjunctiva Clear, SHANI. EOM intact and full ENT: Hearing grossly normal TM x 2 clear, mmoist, uvula midline, no exudate, no erythema Neck: Positive: Supple Respiratory: Positive: No respiratory distress, No accessory muscle use + CTA throughout no w/r Cardiovascular: RRR nl s1, s2 no m/r CBT <2 sec abd soft + BS nt/nd no guarding, no distension Musculoskeletal Exam: PRUETT x 4 without difficulty Strength Intact, ROM Intact Neurological: Positive: Alert, + sensation throughout CN CN 2-12 intact and full + FNF b/l + heel/villa b/l 5/5 abduction, flex/ext elbow, wrist against resistant 5/5 SLE, flex/ext knee, ankle + great toe extension + gross sensation throughout Psychological: Positive: Normal Response To Family Skin: Positive: no rash, no ecchymosis Triage Information Reviewed: Yes Vital Signs: Initial Vital Signs Temp 98.6 F 04/07/19 17:35 Pulse 64 04/07/19 17:35 Resp 18 04/07/19 17:35 BP 118/77 04/07/19 17:35 Pulse Ox 97 04/07/19 17:35 Diagnostics - EKG Cardiac Rate: NL - 62 Cardiac Rhythm: Sinus: Normal Ectopy: None ST Segment: Normal Course/Dx - Course Course Of Treatment: Patient presents to urgent care [facility] reporting that he had some chest pain with radiation to his left arm feeling bloated and nausea this morning. Patient also states his exam is felt very heavy. At present patient states he feels very tired but no other focal complaints. Patient had a workup in the ED about 3 weeks ago with notify cause. Patient scheduled for outpatient stress test on April 21. On exam vital signs are stable. Patient with a nonfocal, and throat non-concerning exam. Patient with good strength. EKG is unremarkable. Recommend patient to emergency department for further evaluation. Patient agreement with plan. Spoke to Dr. Rangel in the emergency department who is aware patient's coming. Patient's will drive him is he symptomatic free with his stable vital signs and normal EKG. - Diagnoses Provider Diagnosis: Weakness, Chest pain in adult Discharge - Sign-Out/Discharge Documenting (check all that apply): Patient Departure All imaging exams completed and their final reports reviewed: No Studies - Discharge Plan Condition: Stable Disposition: HOME-RECOMMEND TO ED Patient Education Materials: Weakness (ED) Referrals: Sandeep Lu MD [Primary Care Provider] - Additional Instructions: The doctor that evaluated you today thinks that you need additional testing that can be completed the emergency department. It is recommended that you go directly to emergency department for further evaluation. This evaluation may include blood work or imaging. This testing will be directed and decided by the provider that evaluate you at the emergency department. If pain becomes worse, you feel lightheaded, you have uncontrolled vomiting, or you have any other concerns while you are being driven to emergency department as recommended to pullover and contact 911. - Billing Disposition and Condition Condition: STABLE Disposition: Home-Recommend to ED
== END 2019-04-07 18:34 | disposition home health service (06) ==
LOC: UCCORT 17:32
DX: R07.9 Chest pain, unspecified (principal); R53.1 Weakness
CPT/HCPCS: 93005; 99212; G0463

== ENCOUNTER 2019-07-19 10:46 | Emergency (ER) | payer OTHER ==
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
[2019-07-19 11:27] VITALS: BP 117/71
--- NOTE | 2019-07-19 12:09 | UC ---
Ear Complaint HPI - HPI Summary HPI Summary: pt presents with c/o right ear pain that began 1 week ago. Pt denies URI like symptoms, does use qtips and has gotten water in his ear during showering. Pt also states that he has had a dull MOSS more on right side than left and states that he had one episode of feeling dizzy while standing up last saturday at work. Pt reports that he thinks there is still water in his right ear. - History of Current Complaint Chief Complaint: UCEar Stated Complaint: RIGHT EAR Time Seen by Provider: 07/19/19 12:03 Hx Obtained From: Patient Onset/Duration: Sudden Onset, Lasting Days, Still Present Severity Initially: Mild Severity Currently: Mild Pain Intensity: 5 Associated Signs/Symptoms: Positive: Foreign Body Sensation - Allergies/Home Medications Allergies/Adverse Reactions: Allergies Allergy/AdvReac Type Severity Reaction Status Date / Time No Known Allergies Allergy Verified 07/19/19 11:26 Home Medications: Home Medications Omeprazole 40 mg PO DAILY 07/19/19 [History Confirmed 07/19/19] PMH/Surg Hx/FS Hx/Imm Hx Previously Healthy: Yes GI/ History: Gastroesophageal Reflux - Surgical History Surgical History: Yes Surgery Procedure, Year, and Place: SUB DURAL HEMATOMA SX. CRICOIDECTOMY. TRACH - Family History Known Family History: Positive: Other - no DVT or PE history, Non-Contributory - Social History Occupation: Employed Full-time Lives: With Family Alcohol Use: Occasionally Substance Use Type: None Smoking Status (MU): Never Smoked Tobacco Have You Smoked in the Last Year: No - Immunization History Vaccination Up to Date: Yes Review of Systems All Other Systems Reviewed And Are Negative: Yes Constitutional: Positive: Negative Skin: Positive: Negative Eyes: Positive: Negative ENT: Positive: Ear Ache Respiratory: Positive: Negative Cardiovascular: Positive: Negative Gastrointestinal: Positive: Negative Genitourinary: Positive: Negative Motor: Positive: Negative Neurovascular: Positive: Negative Musculoskeletal: Positive: Negative Neurological: Positive: Headache Psychological: Positive: Negative Is Patient Immunocompromised?: No Physical Exam Triage Information Reviewed: Yes Appearance: Well-Appearing Vital Signs: Initial Vital Signs Temp 98.4 F 07/19/19 11:23 Pulse 56 07/19/19 11:23 Resp 15 07/19/19 11:23 BP 117/71 07/19/19 11:23 Pulse Ox 97 07/19/19 11:23 Vital Signs Reviewed: Yes Eye Exam: Normal ENT: Positive: Other - small amount of cerumen right TM from 4o'clock - 8 o' clock position and small amountclear liquid in ear canal. Dental Exam: Normal Neck exam: Normal Respiratory: Positive: No respiratory distress Musculoskeletal Exam: Normal Neurological Exam: Normal Psychological Exam: Normal Skin Exam: Normal Ear Complaint Course/Dx - Differential Dx/Diagnosis Differential Diagnosis/HQI/PQRI: Cerumen Impaction Provider Diagnosis: Ear ache Discharge ED - Sign-Out/Discharge Documenting (check all that apply): Patient Departure All imaging exams completed and their final reports reviewed: No Studies - Discharge Plan Condition: Stable Disposition: HOME Patient Education Materials: Earache (ED) Referrals: Sandeep Lu MD [Primary Care Provider] - If Needed - Billing Disposition and Condition Condition: STABLE Disposition: Home
== END 2019-07-19 12:17 | disposition home or self-care (01) ==
LOC: UCCORT 10:48
DX: H92.01 Otalgia, right ear (principal); K21.9 Gastro-esophageal reflux disease without esophagitis
CPT/HCPCS: 99211; G0463

== ENCOUNTER 2019-10-11 10:05 | Emergency (ER) | payer OTHER ==
--- OUTSIDE RECORDS SUMMARY | 2019-10-11 10:33 | XMS REPORT | Continuity of Care Document ---
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 Specialist Medicine Problems Active Problems Provider Date Screening for malignant neoplasm of Sara Marin MD Onset: 08/13/2019 colon Heartburn Sara Marin MD Onset: 08/13/2019 Chest pain Yoan Romano M.D., Onset: 05/05/2019 [facility] Benign essential hypertension Sara Marin MD Onset: 07/27/2019 Mixed hyperlipidemia Sara Marin MD Onset: 07/27/2019 Social History Type Date Description Comments Sex Unknown Tobacco Use Start: Unknown Never Smoked Cigarettes ETOH Use Rarely consumes alcohol Tobacco Use Start: Unknown Patient has never smoked Smoking Status Reviewed: 07/29/19 Patient has never smoked Allergies, Adverse Reactions, Alerts Description No Known Drug Allergies Medications Active Medications SIG Qnty Indications Ordering Date Provider Suprep Bowel Prep Complete first part 354ml Z12.11 Sara Marin, 2018 Kit of prep the evening MD before procedure 17.5-3.13-1.6GM/177M and second part at L Solution least 4 hours before your procedure time Gas Relief take 1 tab day 2units Z12.11 Sara Marin, 08/13/2019 80mg before colonoscopy Chewtabs and 1 tab day of colonoscopy early in the am Omeprazole 1 tablet by mouth Andrew Gasca, 40mg twice daily DO Capsules DR Infante Migraine 1 tab by mouth Unknown first sign of [phone] Tablets migraine Immunizations Description No Information Available Vital Signs Date Vital Result Comment 08/13/2019 3:26pm BP Systolic Sitting Left Arm 126 mmHg BP Diastolic Sitting Left Arm 84 mmHg Body Temperature 97.8 F Heart Rate 67 /min Respiratory Rate 16 /min Height 70 inches 5'10" Weight 214.00 lb BMI (Body Mass Index) 30.7 kg/m2 BSA (Body Surface Area) 2.15 m2 [place] body weight in kilograms 75 kg O2 % BldC Oximetry 96 % Ra Pain Level 0 05/05/2019 7:54am BP Systolic Sitting Left Arm 108 mmHg BP Diastolic Sitting Left Arm 82 mmHg Heart Rate 55 /min Respiratory Rate 18 /min Height 70 inches 5'10" Weight 211.00 lb BMI (Body Mass Index) 30.3 kg/m2 BSA (Body Surface Area) 2.14 m2 [place] body weight in kilograms 75 kg O2 Saturation Level with Exercise 97 % Ejection Fraction 55- 60 % Results Test Date Facility Test Result H/L Range Note Laboratory test 04/08/2019 [facility] Troponin-I < 0.015 ng/mL 1, 2 finding [address] [place] [address] [phone] Thyroid Stim Hormone 1.76 uIU/mL Normal 0.30-4.20 Free T4 1.09 ng/dL Normal 0.76-1.46 Aot Request 04/08/2019 [facility] Aot Request Test(s) added 3 [address] [place] [address] [phone] Tests to be added: tsh,free t4 Glycohemoglobin 04/08/2019 [facility] Glycohemoglobin 6.0 % Normal 4.2-6.3 4 A1c [address] [facility] (A1c) [place] [address] [phone] eAG 126 mg/dL Laboratory test 04/08/2019 [facility] Troponin-I < 0.015 ng/mL 5 finding [address] [place] [address] [phone] LDL Cholesterol 04/08/2019 [facility] Cholesterol 199 mg/dL <200 6 Profile [address] [place] [address] [phone] Triglycerides 216 mg/dL High <150 7 HDL Cholesterol 42 mg/dL >40 8 LDL-Cholesterol 114 mg/dL < 100 9 Laboratory test 04/07/2019 [facility] Lyme Total < 0.91 0.00-0.[address] AB/[place] [address] [phone] 1 CHEST PAIN 2 0.0 - 0.045 ng/mL: Normal 0.046 - 0.5 ng/mL: Suggestive 0.6 - 1.5 ng/mL: Consistent 3 Tests: tsh,free t4 Instructions: 4 Elevated levels of HbA1c suggest the need for more aggressive treatment of glycemia. The [place] [employer] recommends that a primary goal of therapy should be a HbA1c of <7% and that physicians should re-evaluate the treatment regimen in patients with HbA1c values consistently >8%. 5 0.0 - 0.045 ng/mL: Normal 0.046 - 0.5 ng/mL: Suggestive 0.6 - 1.5 ng/mL: Consistent 6 Reference Guidelines*: Desirable: ........... < 200 mg/dL Borderline High: ..... 200-239 mg/dL High: ................ >= 240 mg/dL * The National Cholesterol Education Program (NCEP) 7 Reference Guidelines*: Normal: ............. < 150 mg/dL Borderline High: .... 150-199 mg/dL High: ............... 200-499 mg/dL Very High: .......... > 500 mg/dL * Source: National Cholesterol Education Program (NCEP) 8 Reference Guidelines*: Low HDL: ..... < 40 mg/dL Normal: ..... 40-60 mg/dL Desirable: ... > 60 mg/dL *The National Cholesterol Education Program(NCEP) 9 Reference Guidelines*: Optimal:........... <100 mg/dL Near Optimal....... 100-129 mg/dL Borderline High.... 130-159 mg/dL High............... 160-189 mg/dL Very High.......... >=190 mg/dL * Source: National Cholesterol Education Program (NCEP) 10 Negative <0.91 Equivocal 0.91 - 1.09 Positive >1.09 Performed at: RN - [facility] [address] [id number] Pile Driving Nozzleman: Sol Kim MD, Phone: [phone] Procedures Date Code Description Status 05/05/2019 44597 EKG-Tracing And Report Completed 04/21/2019 39347 Stress Test Interpre And Report Only Completed 04/21/2019 72825 Stress Test Physician Super Only Completed Medical Devices Description No Information Available Encounters Type Date Location Provider Dx Diagnosis Office Visit 05/05/2019 Cardiology Office Yoan Romano R07.89 Other chest pain 7:40a Michael Bills., [facility] Assessments Date Code Description Provider 08/13/2019 R12 Heartburn Sara Marin MD 08/13/2019 Z12.11 Encounter for screening for Sara Marin MD malignant neoplasm of colon 05/05/2019 R07.89 Other chest pain Yoan Romano M.D., [facility] 04/21/2019 R07.89 Other chest pain Yoan Romano M.D., [facility] 04/08/2019 R07.9 Chest pain, unspecified Annia Miller M.D. 04/07/2019 R07.9 Chest pain, unspecified Pat Terry M.D. 04/07/2019 M62.81 Muscle weakness (generalized) Pat Terry M.D. Plan of Treatment 08/13/2019 - Sara Marin, MDR12 HeartburnNew Orders:Endoscopy, Ordered: Comments:We'll schedule patient for EGDI have explained the risks, benefits, and alternatives of the procedures. We have discussed the potential risks including, but not limited to perforation, bleeding, infection, cardiopulmonary complications, aspiration, or unforeseen complicationsContinue with PPI, 30 minutes before breakfastAntireflux lifestyle modifications Caution with NSAIDsFollow up:EGD and colonoscopy Follow-up pending dvplllbtvaP27.11 Encounter for screening for malignant neoplasm of colonNew Medication:Suprep Bowel Prep Kit 17.5-3.13-1.6 GM/177ML - Complete first part of prep the evening before procedure and second part at least 4 hours before your procedure timeGas Relief 80 mg - take 1 tab day before colonoscopy and 1 tab day of colonoscopy early in the amNew Orders:Colonoscopy, Ordered: 08/13/19 Functional Status Functional Condition Comment Date Status Independent with all ADL's Active Mental Status Description No Information Available Referrals Description No Information Available
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
--- OUTSIDE RECORDS SUMMARY | 2019-10-11 10:33 | XMS REPORT | Continuity of Care Document ---
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 Medicine Problems Active Problems Provider Date Screening for malignant neoplasm of Sara Marin MD Onset: 08/13/2019 colon Heartburn Sara Marin MD Onset: 08/13/2019 Chest pain Yoan Romano M.D., Onset: 05/05/2019 [facility] Benign essential hypertension Sara Marin MD Onset: [...] Z12.11 Sara Marin, 08/13/2019 80mg before colonoscopy MD Chewtabs and 1 tab day of colonoscopy early in the am Omeprazole 1 tablet by mouth Andrew Gasca, 40mg twice daily DO Dayami Infante Migraine 1 tab by mouth Unknown first sign of [phone] Tablets migraine Immunizations Description No Information Available Vital Signs Date Vital Result Comment 08/13/2019 3:26pm BP Systolic Sitting Left Arm 126 mmHg BP Diastolic Sitting Left Arm 84 mmHg Body Temperature 97.8 F Heart Rate 67 /min Respiratory Rate 16 /min Height 70 inches 5'10" Weight 214.00 lb BMI (Body Mass Index) 30.7 kg/m2 BSA (Body Surface Area) 2.15 m2 [place] body weight in kilograms 75 kg O2 % BldC Oximetry 96 % Ra Pain Level 0 05/05/2019 7:54am BP Systolic Sitting Left Arm 108 mmHg BP Diastolic Sitting Left Arm 82 mmHg Heart Rate 55 /min Respiratory Rate 18 /min Height 70 inches 5'10" Weight 211.00 lb BMI (Body Mass Index) 30.3 kg/m2 BSA (Body Surface Area) 2.14 m2 [place] body weight in kilograms 75 kg O2 Saturation Level with Exercise 97 % Ejection Fraction 55- 60 % Results Test Acquired Date Facility Test Result H/L Range Note Laboratory test 04/08/2019 [facility] Troponin-I < 0.015 ng/mL 1, 2 finding [address] [place] [address] [phone] Thyroid Stim Hormone 1.76 uIU/mL Normal 0.30-4.20 Free T4 1.09 ng/dL Normal 0.76-1.46 Aot Request 04/08/2019 [facility] Aot Request Test(s) added 3 [address] [place] [address] [phone] Tests to be added: tsh,free t4 Glycohemoglobin 04/08/2019 [facility] Glycohemoglobin 6.0 % Normal 4.2-6.3 4 A1c 134 [facility] (A1c) [place] [address] [phone] eAG 126 mg/dL Laboratory test 04/08/2019 [facility] Troponin-I < 0.015 ng/mL 5 finding [address] [place] [address] [phone] LDL Cholesterol 04/08/2019 [facility] Cholesterol 199 mg/dL <200 6 Profile [address] [place] [address] [phone] Triglycerides 216 mg/dL High <150 7 HDL Cholesterol 42 mg/dL >40 8 LDL-Cholesterol 114 mg/dL < 100 9 Laboratory test 04/07/2019 [facility] Lyme Total < 0.91 0.00-0.90 [address] AB/Reflex [place] [address] [phone] 1 CHEST PAIN 2 0.0 - 0.045 ng/mL: Normal 0.046 - 0.5 ng/mL: Suggestive 0.6 - 1.5 ng/mL: Consistent 3 Tests: tsh,free t4 Instructions: 4 Elevated levels of HbA1c suggest the need for more aggressive treatment of glycemia. The [place] [employer] recommends that a primary goal [...] Positive >1.09 Performed at: RN - [facility] [address] [id number] Superintendent Circus: Sol Kim MD, Phone: [phone] Procedures Date Code Description Status 05/05/2019 03760 EKG-Tracing And Report Completed 04/21/2019 12994 Stress Test Interpre And Report Only Completed 04/21/2019 18491 Stress Test Physician Super Only Completed Medical Devices Description No Information Available Encounters Type Date Location Provider Dx Diagnosis Office Visit 08/13/2019 3:20p GI Sara Marin MD R12 Heartburn Z12.11 Encounter for screening for malignant neoplasm of colon Office Visit 05/05/2019 7:40a Cardiology Office Yoan Romano R07.89 Other chest Marium Bills, [facility] pain Assessments Date Code Description Provider 09/21/2019 R12 Heartburn Tin Phillips PA 09/21/2019 Z12.11 Encounter for screening for Tin Phillips PA malignant neoplasm of colon 08/13/2019 R12 Heartburn Sara Marin MD 08/13/2019 Z12.11 Encounter for screening for Sara Marin MD malignant neoplasm of colon 05/05/2019 R07.89 Other chest pain Yoan Romano M.D., [facility] 04/21/2019 R07.89 Other chest pain Yoan Romano M.D., [facility] 04/08/2019 R07.9 Chest pain, unspecified Annia Miller M.D. 04/07/2019 R07.9 Chest pain, unspecified Pat Terry M.D. 04/07/2019 M62.81 Muscle weakness (generalized) Pat Terry M.D. Plan of Treatment Future Appointment(s):10/14/2019 8:50 am - Sara Marin MD at Operating Room10/29/2019 3:00 pm - Sara Marin MD at 09/21/2019 - Tin Phillips , PAR12 HeartburnComments:Proceed with EGD as rlhszibkiY11.11 Encounter for screening for malignant neoplasm of colonComments:Proceed with colonoscopy as scheduled Functional Status Functional Condition Comment Date Status Independent with all ADL's Active Mental Status Description No Information Available Referrals Description No Information Available
[2019-10-11 11:02] VITALS: BP 117/79
--- NOTE | 2019-10-11 11:34 | UC ---
Ear Complaint HPI - HPI Summary HPI Summary: Pt presents with c/o bilateral ear discharge, "fullness" and mild discomfort. Pt has URI like symptoms X 3-4 days. has hx of TBI with "inner ear involvement" - History of Current Complaint Chief Complaint: UCEar Stated Complaint: EAR PAIN Time Seen by Provider: 10/11/19 11:26 Hx Obtained From: Patient Onset/Duration: Sudden Onset Severity Initially: Moderate Severity Currently: Moderate Pain Intensity: 4 Associated Signs/Symptoms: Positive: Discharge, Hearing Loss, URI Symptoms - Allergies/Home Medications Allergies/Adverse Reactions: Allergies Allergy/AdvReac Type Severity Reaction Status Date / Time No Known Allergies Allergy Verified 07/19/19 11:26 Home Medications: Home Medications Sucralfate TAB* [Carafate*] 1 tab PO TID WITH MEALS 10/11/19 [History Confirmed 10/11/19] PMH/Surg Hx/FS Hx/Imm Hx Previously Healthy: Yes GI/ History: Gastroesophageal Reflux - Surgical History Surgical History: Yes Surgery Procedure, Year, and Place: SUB DURAL HEMATOMA SX. CRICOIDECTOMY. TRACH - Family History Known Family History: Positive: Other - no DVT or PE history, Non-Contributory - Social History Occupation: Employed Full-time Lives: With Family Alcohol Use: Occasionally Substance Use Type: None Smoking Status (MU): Never Smoked Tobacco Have You Smoked in the Last Year: No - Immunization History Vaccination Up to Date: Yes Review of Systems All Other Systems Reviewed And Are Negative: Yes Constitutional: Positive: Fatigue Skin: Positive: Negative Eyes: Positive: Negative ENT: Positive: Nasal Discharge, Sinus Congestion, Other - ear discharge, ear pain, loss of hearing Respiratory: Positive: Negative Cardiovascular: Positive: Negative Gastrointestinal: Positive: Negative Genitourinary: Positive: Negative Motor: Positive: Negative Neurovascular: Positive: Negative Musculoskeletal: Positive: Negative Neurological: Positive: Negative Psychological: Positive: Negative Is Patient Immunocompromised?: No Physical Exam Triage Information Reviewed: Yes Appearance: Well-Appearing Vital Signs: Initial Vital Signs Temp 98.1 F 10/11/19 10:58 Pulse 55 10/11/19 10:58 Resp 18 10/11/19 10:58 BP 117/79 10/11/19 10:58 Pulse Ox 100 10/11/19 10:58 Vital Signs Reviewed: Yes Eye Exam: Normal ENT: Positive: Nasal congestion, Other - bilateral ear canal with purulent discharge covering TM. Pt also has c/o nasal congestion Dental Exam: Normal Neck exam: Normal Respiratory Exam: Normal Cardiovascular Exam: Normal Musculoskeletal Exam: Normal Neurological Exam: Normal Psychological Exam: Normal Skin Exam: Normal Ear Complaint Course/Dx - Differential Dx/Diagnosis Differential Diagnosis/HQI/PQRI: Otitis Externa, Otitis Media, URI Provider Diagnosis: Otitis externa, Otitis media Discharge ED - Sign-Out/Discharge Documenting (check all that apply): Patient Departure All imaging exams completed and their final reports reviewed: No Studies - Discharge Plan Condition: Stable Disposition: HOME Prescriptions: Amoxicillin PO (*) [Amoxicillin 500 MG CAP*] 500 mg PO Q12H #20 cap Ciproflox/Dexameth OTIC.SUSP* [Ciprodex OTIC.SUSP*] 2 drop BOTH EARS Q8H 7 Days #1 btl Patient Education Materials: Ear Infection (ED) Referrals: Sandeep Lu MD [Primary Care Provider] - If Needed - Billing Disposition and Condition Condition: STABLE Disposition: Home
== END 2019-10-11 11:45 | disposition home or self-care (01) ==
LOC: UCCORT 10:05
DX: H60.93 Unspecified otitis externa, bilateral (principal); H66.93 Otitis media, unspecified, bilateral; R09.81 Nasal congestion
CPT/HCPCS: 99211; G0463

== ENCOUNTER 2019-11-17 19:27 | Emergency (ER) | payer SELFPAY ==
--- OUTSIDE RECORDS SUMMARY | 2019-11-17 19:52 | XMS REPORT | Continuity of Care Document ---
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 [phone] Medicine Problems Active Problems Provider Date Screening for malignant neoplasm of Sara Marin MD Onset: 08/13/2019 colon Heartburn Sara Marin MD Onset: 08/13/2019 Chest pain Yoan Romano M.D., Onset: 05/05/2019 [facility] Benign essential hypertension Sara Marin MD Onset: 07/27/2019 Mixed hyperlipidemia Sara Marin MD Onset: 07/27/2019 Social History Type Date Description Comments Sex Unknown Tobacco Use Start: Unknown Never Smoked Cigarettes ETOH Use Rarely consumes alcohol Tobacco Use Start: Unknown Patient has never smoked Smoking Status Reviewed: 10/29/19 Patient has never smoked Allergies, Adverse Reactions, Alerts Description No Known Drug Allergies Medications Active Medications SIG Qnty Indications Ordering Provider Date Omeprazole 1 tablet by mouth Andrew Gasca, 40mg twice daily Capsules DR Infante Migraine 1 tab by mouth Unknown first sign of [id number] Tablets migraine Sucralfate Takes 1 Tablet By Digiovankeon, 1gm Tablets Mouth Four Times A EVELIN Mendoza Day History Medications Suprep Bowel Prep Kit Complete first 354ml Z12.11 Sara Marin, 2018 - part of prep the MD 10/29/2019 17.5-3.13-1.6GM/177ML evening before Solution procedure and second part at least 4 hours before your procedure time Gas Relief take 1 tab day 2units Z12.11 Sara Marin, 08/13/2019 - 80mg Chewtabs before MD 10/29/2019 colonoscopy and 1 tab day of colonoscopy early in the am Immunizations Description No Information Available Vital Signs Date Vital Result Comment 10/29/2019 2:47pm BP Systolic Sitting Left Arm 127 mmHg BP Diastolic Sitting Left Arm 85 mmHg Body Temperature 98.6 F Heart Rate 61 /min Respiratory Rate 16 /min Height 70 inches 5'10" Weight 209.38 lb Pain Level 0 BMI (Body Mass Index) 30.0 kg/m2 BSA (Body Surface Area) 2.13 m2 [place] body weight in kilograms 75 kg O2 % BldC Oximetry 98 % Ra 08/13/2019 3:26pm BP Systolic Sitting Left Arm 126 mmHg BP Diastolic Sitting Left Arm 84 mmHg Body Temperature 97.8 F Heart Rate 67 /min Respiratory Rate 16 /min Height 70 inches 5'10" Weight 214.00 lb Pain Level 0 BMI (Body Mass Index) 30.7 kg/m2 BSA (Body Surface Area) 2.15 m2 [place] body weight in kilograms 75 kg O2 % BldC Oximetry 96 % Ra Results Description No Information Available Procedures Date Code Description Status 10/14/2019 06711 Colonoscopy Completed 10/14/2019 23571 EGD With Biopsy Completed 10/14/2019 82910664 Colonoscopy Completed 05/05/2019 75493 EKG-Tracing And Report Completed Medical Devices Description No Information Available Encounters Type Date Location Provider Dx Diagnosis Office Visit 08/13/2019 3:20p GI Sara Marin MD R12 Heartburn Z12.11 Encounter for screening for malignant neoplasm of colon Office Visit 05/05/2019 7:40a Cardiology Office Yoan Romano R07.89 Other chest Marium Bills, [facility] pain Assessments Date Code Description Provider 10/29/2019 R12 Heartburn Sara Marin MD 10/29/2019 R10.11 Right upper quadrant pain Sara Marin MD 10/29/2019 Z12.11 Encounter for screening for Sara Marin MD malignant neoplasm of colon 10/14/2019 Z12.11 Encounter for screening for Sara Marin MD malignant neoplasm of colon 10/14/2019 K22.8 Other specified diseases of Sara Marin MD esophagus 10/14/2019 K31.89 Other diseases of stomach and Sara Marin MD duodenum 10/14/2019 K29.50 Unspecified chronic gastritis Sara Marin MD without bleeding 09/21/2019 R12 Heartburn Tin Phillips PA 09/21/2019 Z12.11 Encounter for screening for Tin Phillips PA malignant neoplasm of colon 09/21/2019 Z01.818 Encounter for other preprocedural Tin Phillips PA examination 08/13/2019 R12 Heartburn Sara Marin MD 08/13/2019 Z12.11 Encounter for screening for Sara Marin MD malignant neoplasm of colon 05/05/2019 R07.89 Other chest pain Yoan Romano M.D., [facility] Plan of Treatment Future Appointment(s):11/12/2019 2:15 pm - Vasiliy Ureña M.D. at Surgical [facility]1004/28/2020 8:30 am - Sara Marin MD at GI08/13/2019 - Sara Marin, MDR12 HeartburnNew Orders:Endoscopy, Ordered: 08/13/19Comments:We'll schedule patient for EGDI have explained the risks, benefits, and alternatives of the procedures. We have discussed the potential risks including, but not limited to perforation, bleeding, infection, cardiopulmonary complications, aspiration, or unforeseen complicationsContinue with PPI, 30 minutes before breakfastAntireflux lifestyle modifications Caution with NSAIDsFollow up:EGD and colonoscopy Follow-up pending migddnittfX90.11 Encounter for screening for malignant neoplasm of colonNew Medication:Suprep Bowel Prep Kit 17.5-3.13-1.6 GM /177ML - Complete first part of prep the evening before procedure and second part at least 4 hours before your procedure timeGas Relief 80 mg - take 1 tab day before colonoscopy and 1 tab day of colonoscopy early in the amNew Orders: Colonoscopy, Ordered: 08/13/19 Functional Status Functional Condition Comment Date Status Independent with all ADL's Active Mental Status Description No Information Available Referrals Refer to Reason for Referral Status Appt Date Vasiliy Ureña MD gallstones Created [address] [place] [address] [phone]
[2019-11-17 20:07] VITALS: BP 112/63
--- NOTE | 2019-11-17 20:32 | UC ---
Throat Pain/Nasal Martin HPI - HPI Summary HPI Summary: 54 yo with 5 day history of malaise, congestion, sinus pressure and sense of throat tightness. (hx of reflux and past tracheostomy). No fever. Has not responded to rest and symptomatic treatment. - History of Current Complaint Chief Complaint: UCRespiratory Stated Complaint: COUGH, SORE THROAT Time Seen by Provider: 11/17/19 20:21 Hx Obtained From: Patient Onset/Duration: Gradual Onset, Lasting Days Severity: Moderate Pain Intensity: 4 Cough: Nonproductive Associated Signs & Symptoms: Positive: Dysphagia, Hoarseness, Sinus Discomfort - Allergies/Home Medications Allergies/Adverse Reactions: Allergies Allergy/AdvReac Type Severity Reaction Status Date / Time No Known Allergies Allergy Verified 11/17/19 19:55 Home Medications: Home Medications Pseudoephedrine HCl [Sudafed 12 Hour] 120 PRN 11/17/19 [History] PMH/Surg Hx/FS Hx/Imm Hx Previously Healthy: Yes GI/ History: Gastroesophageal Reflux - Surgical History Surgical History: Yes Surgery Procedure, Year, and Place: SUB DURAL HEMATOMA SX. CRICOIDECTOMY. TRACH - Family History Known Family History: Positive: Cardiac Disease - father, Other - no DVT or PE history, Non-Contributory - Social History Occupation: Employed Full-time Lives: With Family Alcohol Use: Occasionally Substance Use Type: None Smoking Status (MU): Never Smoked Tobacco Have You Smoked in the Last Year: No - Immunization History Vaccination Up to Date: Yes Review of Systems All Other Systems Reviewed And Are Negative: Yes Constitutional: Positive: Fatigue Skin: Positive: Negative Eyes: Positive: Negative ENT: Positive: Sore Throat, Nasal Discharge, Sinus Congestion Respiratory: Positive: Shortness Of Breath, Cough Cardiovascular: Positive: Negative Gastrointestinal: Positive: Negative Genitourinary: Positive: Negative Motor: Positive: Negative Neurovascular: Positive: Negative Musculoskeletal: Positive: Negative Neurological: Positive: Negative Psychological: Positive: Negative Is Patient Immunocompromised?: No Physical Exam Triage Information Reviewed: Yes Appearance: Pain Distress - looks mildly unwell Vital Signs: Initial Vital Signs Temp 98.5 F 11/17/19 19:56 Pulse 77 11/17/19 19:56 Resp 16 11/17/19 19:56 BP 112/63 11/17/19 19:56 Pulse Ox 97 11/17/19 19:56 Eye Exam: Normal ENT: Positive: Pharyngeal erythema Dental Exam: Other - upper denture Neck: Positive: Supple, Nontender, No Lymphadenopathy Respiratory: Positive: Lungs clear, Normal breath sounds Cardiovascular: Positive: RRR, No Murmur Musculoskeletal Exam: Normal Neurological Exam: Normal Psychological Exam: Normal Skin Exam: Normal Throat Pain/Nasal Course/Dx - Course Course Of Treatment: amoxicillin for treatment of sinusitis, advised flonase. - Differential Dx/Diagnosis Differential Diagnosis/HQI/PQRI: Pharyngitis, Sinusitis, Tonsillitis, Other - bronchitis Provider Diagnosis: Sinusitis Discharge ED - Sign-Out/Discharge Documenting (check all that apply): Patient Departure All imaging exams completed and their final reports reviewed: No Studies - Discharge Plan Condition: Stable Disposition: HOME Prescriptions: Amoxicillin PO (*) [Amoxicillin 875 MG (*)] 875 mg PO BID #20 tab Patient Education Materials: Sinusitis (ED) Referrals: Sandeep Lu MD [Primary Care Provider] - Additional Instructions: Take full course of antibiotics for treatment of sinusitis, and try over the counter Flonase (fluticasone) 2 sprays to both nostrils once daily for relief of congestion. Ensure a high intake of fluids and rest. follow up if you develop fever, cough or shortness of breath. - Billing Disposition and Condition Condition: STABLE Disposition: Home
== END 2019-11-17 20:44 | disposition home or self-care (01) ==
LOC: UCCORT 19:27
DX: J32.9 Chronic sinusitis, unspecified (principal); J39.2 Other diseases of pharynx; R06.02 Shortness of breath
CPT/HCPCS: 99212; G0463

== ENCOUNTER 2019-12-16 19:43 | Emergency (ER) | payer MEDICAID, OTHER ==
--- OUTSIDE RECORDS SUMMARY | 2019-12-16 19:50 | XMS REPORT | Continuity of Care Document ---
:1965 External Reference #:[id number] Author Name Vasiliy Ureña M.D. Address [facility] [place] [address] Care Team Providers Name Role Phone Sandeep Lu MD - Family Care Team Information Clinical Education Assistant [phone] Medicine Problems Active Problems Provider Date Chest pain Yoan Romano M.D., Onset: 05/05/2019 [facility] Heartburn Sara Marin MD Onset: 08/13/2019 Screening for malignant neoplasm of Sara Marin MD Onset: 08/13/2019 colon Benign essential hypertension Sara Marin MD Onset: [...] tab by mouth Unknown first sign of [id number] Tablets migraine History Medications Suprep Bowel Prep Kit Complete first 354ml Z12.11 Sara Marin, 2018 - part of prep the 10/29/2019 17.5-3.13-1.6GM/177ML evening before Solution procedure and second part at least 4 hours before your procedure time Gas Relief take 1 tab day 2units Z12.11 Sara Marin, 08/13/2019 - 80mg Chewtabs before 10/29/2019 colonoscopy and 1 tab day of colonoscopy early in the am Immunizations Description No Information Available Vital Signs Date Vital Result Comment 12/02/2019 2:22pm BP Systolic Sitting Right Arm 128 mmHg BP Diastolic Sitting Right Arm 81 mmHg Body Temperature 98.4 F Heart Rate 123 /min Height 70 inches 5'10" Weight 202.00 lb BMI (Body Mass Index) 29.0 kg/m2 BSA (Body Surface Area) 2.10 m2 [place] body weight in kilograms 75 kg O2 % BldC Oximetry 98 % 10/29/2019 2:47pm BP Systolic Sitting Left Arm 127 mmHg BP Diastolic Sitting Left Arm 85 mmHg Body Temperature 98.6 F Heart Rate 61 /min Respiratory Rate 16 /min Height 70 inches 5'10" Weight 209.38 lb Pain Level 0 BMI (Body Mass Index) 30.0 kg/m2 BSA (Body Surface Area) 2.13 m2 [place] body weight in kilograms 75 kg O2 % BldC Oximetry 98 % Ra Results Description No Information Available Procedures Date Code Description Status 10/14/2019 79914 Colonoscopy Completed 10/14/2019 49847 EGD With Biopsy Completed 10/14/2019 03441665 Colonoscopy Completed Medical Devices Description No Information Available Encounters Type Date Location Provider Dx Diagnosis Office Visit 12/02/2019 Surgical Office David Ureña80.20 Calculus of 2:15p Vasiliy Pedraza, gallbladder w/o M.DKati cholecystitis w/o obstruction Office Visit 10/29/2019 Sara Reyes MD Z98.890 Other specified 3:00p postprocedural states R12 Heartburn R10.11 Right upper quadrant pain Z12.11 Encounter for screening for malignant neoplasm of colon Office Visit 08/13/2019 3:20p Sara Reyes MD R12 Heartburn Z12.11 Encounter for screening for malignant neoplasm of colon Assessments Date Code Description Provider 12/02/2019 K80.20 Calculus of gallbladder without Vasiliy Ureña M.D. cholecystitis without obstruction 10/29/2019 Z98.890 Other specified postprocedural Sara Marin MD states 10/29/2019 R12 Heartburn Sara Marin MD 10/29/2019 [...] Sara Marin MD malignant neoplasm of colon Plan of Treatment Future Appointment(s):04/28/2020 8:30 am - Sara Marin MD at GI08/13/2019 - Sara Marin, MDR12 HeartburnNew Orders:Endoscopy, Ordered: 08/13/19Comments:We 'll schedule patient for EGDI have explained the risks, benefits, and alternatives of the procedures. We have discussed the potential risks including , but not limited to perforation, bleeding, infection, cardiopulmonary complications, aspiration, or unforeseen complicationsContinue with PPI, 30 minutes before breakfastAntireflux lifestyle modifications Caution with NSAIDsFollow up:EGD and colonoscopy Follow-up pending ntoedknbudL60.11 Encounter for screening for malignant neoplasm of [...] Status Appt Date Vasiliy Ureña MD gallstones Patient Notified 11/12/2019 [address] [place] [address] [phone]
[2019-12-16 20:05] VITALS: BP 112/71
--- NOTE | 2019-12-16 20:26 | UC ---
Ear Complaint HPI - HPI Summary HPI Summary: Patient is a 54yo male presenting with significant other for b/l ear pain x2 days. States right ear hurt worse yesterday and now left ear is worse today. States "plugged feeling" and decreased hearing in both ears. Denies drainage. Denies tinnitus. Does note URI symptoms for last several days. Denies fever and chills. Taking robitussin and using flonase without much relief. - History of Current Complaint Chief Complaint: UCEar Stated Complaint: EAR CONCERN Hx Obtained From: Patient Pain Intensity: 5 Pain Scale Used: 0-10 Numeric - Allergies/Home Medications Allergies/Adverse Reactions: Allergies Allergy/AdvReac Type Severity Reaction Status Date / Time No Known Allergies Allergy Verified 12/16/19 20:05 Home Medications: Home Medications Omeprazole 40 mg PO DAILY 07/19/19 [History Confirmed 12/16/19] Neomyc/Polym/HC 1% OTIC SUSP* [Cortisporin Otic Susp 1%*] 4 drop BOTH EARS TID 7 Days #1 btl 12/16/19 [Rx] guaiFENesin 100 mg/5 ml LIQ [Robitussin 100 mg/5ml LIQ] 10 ml PO Q4H PRN [History Confirmed 12/16/19] PMH/Surg Hx/FS Hx/Imm Hx GI/ History: Gastroesophageal Reflux - Surgical History Surgical History: Yes Surgery Procedure, Year, and Place: SUB DURAL HEMATOMA SX. CRICOIDECTOMY. TRACH - Family History Known Family History: Positive: Cardiac Disease - father, Other - no DVT or PE history, Non-Contributory - Social History Alcohol Use: Occasionally Substance Use Type: None Smoking Status (MU): Never Smoked Tobacco Have You Smoked in the Last Year: No - Immunization History Vaccination Up to Date: Yes Review of Systems All Other Systems Reviewed And Are Negative: Yes Constitutional: Positive: Negative ENT: Positive: Ear Ache - b/l, Sinus Congestion. Negative: Sore Throat Respiratory: Positive: Cough. Negative: Shortness Of Breath Cardiovascular: Positive: Negative Gastrointestinal: Positive: Negative Musculoskeletal: Positive: Negative Neurological/Mental Status: Positive: Negative Physical Exam - Summary Physical Exam Summary: Vital Signs Reviewed: Yes A+Ox3, no distress, well-appearing Eyes: Conjunctiva Clear ENT: Hearing grossly normal. b/l edematous EACs with scant purulent drainage worse on right, TMs unable to be visualized, no tenderness with manipulation of pinna, no mastoid tenderness, +PND, moist, uvula midline, no exudate, no erythema Neck: Positive: Supple, no lymphadenopthy Respiratory: Positive: No respiratory distress, No accessory muscle use + CTA throughout no w/r Cardiovascular: RRR nl s1, s2 no m/r Musculoskeletal Exam: PRUETT x 4 without difficulty Neurological: Positive: Alert Psychological: Positive: age appropriate behavior Skin: Positive: no rash, no ecchymosis Vital Signs: Initial Vital Signs Temp 97.5 F 12/16/19 20:02 Pulse 98 12/16/19 20:02 Resp 16 12/16/19 20:02 BP 112/71 12/16/19 20:02 Pulse Ox 98 12/16/19 20:02 Ear Complaint Course/Dx - Course Course Of Treatment: Discussed bilateral acute otitis externa with patient. Educated on placing objects in the ears including Q-tips and keeping the ears as dry as possible while symptoms are present. I treated patient with Cortisporin drops and instructed to follow up with PCP if symptoms do not resolve within 1 week. Patient voiced understanding and agreed with the treatment plan. - Differential Dx/Diagnosis Differential Diagnosis/HQI/PQRI: Otitis Externa, Otitis Media, URI Provider Diagnosis: Viral URI with cough, Otitis externa of both ears Discharge ED - Sign-Out/Discharge Documenting (check all that apply): Patient Departure All imaging exams completed and their final reports reviewed: No Studies - Discharge Plan Condition: Stable Disposition: HOME Prescriptions: Neomyc/Polym/HC 1% OTIC SUSP* [Cortisporin Otic Susp 1%*] 4 drop BOTH EARS TID 7 Days #1 btl Patient Education Materials: Otitis Externa (ED), Upper Respiratory Infection ( ED) Referrals: Sandeep Lu MD [Primary Care Provider] - If Needed Additional Instructions: Use antibiotic ear drops as prescribed. You may continue with Flonase and take an over the counter decongestant for symptom relief. Follow up with your primary care provider if symptoms do no resolve within 7 days. - Billing Disposition and Condition Condition: STABLE Disposition: Home
== END 2019-12-16 20:38 | disposition home or self-care (01) ==
LOC: UCCORT 19:43
DX: J06.9 Acute upper respiratory infection, unspecified (principal); R05 Cough; H60.93 Unspecified otitis externa, bilateral; K21.9 Gastro-esophageal reflux disease without esophagitis; Z79.899 Other long term (current) drug therapy
CPT/HCPCS: 99212; G0463

== ENCOUNTER 2019-12-29 16:30 | Emergency (ER) | payer MEDICAID, OTHER ==
--- OUTSIDE RECORDS SUMMARY | 2019-12-29 16:39 | XMS REPORT | Continuity of Care Document ---
:1965 External Reference #:[id number] Author Name Sara Marin MD Address [address], [address] [place] [address] Care Team Providers Name Role Phone Sandeep Lu MD - Family Care Team Information [place] Medicine Problems Active Problems Provider Date Chest pain Yoan Romano M.D., Onset: 05/05/2019 [facility] Heartburn Sara Marin MD Onset: 08/13/2019 Screening [...] tab by mouth Unknown first sign of [id number] Tablets migraine History Medications Suprep Bowel Prep [...] kg/m2 BSA (Body Surface Area) 2.10 m2 [place] body weight in kilograms 75 kg O2 % BldC Oximetry 98 % 10/29/2019 2:47pm BP Systolic Sitting Left Arm 127 mmHg BP Diastolic Sitting Left Arm 85 mmHg Body Temperature 98.6 F Heart Rate 61 /min Respiratory Rate 16 /min Height 70 inches 5'10" Weight 209.38 lb Pain Level 0 BMI (Body Mass Index) 30.0 kg/m2 BSA (Body Surface Area) 2.13 m2 [place] body weight in kilograms 75 kg O2 % BldC Oximetry 98 % Ra Results Description No Information Available Procedures Date Code Description Status 10/14/2019 50761 Colonoscopy Completed 10/14/2019 72221 EGD With Biopsy Completed 10/14/2019 11730854 Colonoscopy Completed Medical Devices Description No Information Available Encounters Type Date Location Provider Dx Diagnosis Office Visit 12/02/2019 Surgical Office David Ureña80.20 Calculus of 2:15p Familiaopher HKati, gallbladder w/o M.D. cholecystitis w/o obstruction Office Visit 10/29/2019 Sara [...] neoplasm of colon Plan of Treatment Future Appointment(s):02/04/2020 1:15 pm - Vasiliy Ureña M.D. at Surgical [facility]2801/18/2020 7:30 am - Vasiliy Ureña M.D. at Operating Room04/28/2020 8:30 am - Sara Marin MD at GI Functional Status Functional Condition Comment Date Status Independent with all ADL's Active Mental Status Description No Information Available Referrals Refer to Dr Reason for Referral Status Appt Date Vasiliy Ureña MD gallstones Closed 11/12/2019 [facility] [place] [address] [phone]
[2019-12-29 17:07] VITALS: BP 118/80
--- NOTE | 2019-12-29 17:36 | UC ---
Ear Complaint HPI - HPI Summary HPI Summary: 54-year-old male presenting with decreased hearing of the left ear 3 weeks. Patient states he was here approximately one and a half weeks ago and treated for otitis externa. States symptoms have a slightly improved. Denies pain. Denies drainage from the ear. Denies tinnitus. Denies fever and chills. Does note nasal congestion x3 weeks. Patient adds that a couple days ago he coughed so hard it caused his ear to "pop" a couple times which relieved his symptoms but states he was unable to hear again shortly after. - History of Current Complaint Chief Complaint: UCEar Stated Complaint: LEFT EAR PAIN Hx Obtained From: Patient Pain Intensity: 0 - Allergies/Home Medications Allergies/Adverse Reactions: Allergies Allergy/AdvReac Type Severity Reaction Status Date / Time No Known Allergies Allergy Verified 12/29/19 17:07 Home Medications: Home Medications Omeprazole 40 mg PO DAILY 07/19/19 [History Confirmed 12/29/19] Neomyc/Polym/HC 1% OTIC SUSP* [Cortisporin Otic Susp 1%*] 4 drop BOTH EARS TID 7 Days #1 btl 12/16/19 [Rx Confirmed 12/29/19] PMH/Surg Hx/FS Hx/Imm Hx - Surgical History Surgical History: Yes Surgery Procedure, Year, and Place: SUB DURAL HEMATOMA SX. CRICOIDECTOMY. TRACH - Family History Known Family History: Positive: Cardiac Disease - father, Other - no DVT or PE history, Non-Contributory - Social History Alcohol Use: Occasionally Substance Use Type: None Smoking Status (MU): Never Smoked Tobacco Have You Smoked in the Last Year: No - Immunization History Vaccination Up to Date: Yes Review of Systems All Other Systems Reviewed And Are Negative: Yes Constitutional: Positive: Negative ENT: Positive: Sinus Congestion, Other - left ear decreased hearing. Negative: Sore Throat, Ear Ache Respiratory: Positive: Negative Cardiovascular: Positive: Negative Gastrointestinal: Positive: Negative Musculoskeletal: Positive: Negative Neurological/Mental Status: Positive: Negative Physical Exam - Summary Physical Exam Summary: Vital Signs Reviewed: Yes A+Ox3, no distress, well-appearing Eyes: Conjunctiva Clear ENT: Hearing grossly normal, TM x 2 clear, moist, uvula midline, no exudate, no erythema Neck: Positive: Supple Respiratory: Positive: No respiratory distress, No accessory muscle use + CTA throughout no w/r Cardiovascular: RRR nl s1, s2 no m/r Musculoskeletal Exam: PRUETT x 4 without difficulty Neurological: Positive: Alert Psychological: Positive: age appropriate behavior Skin: Positive: no rash, no ecchymosis Vital Signs: Initial Vital Signs Temp 98.1 F 12/29/19 17:04 Pulse 60 12/29/19 17:04 Resp 15 12/29/19 17:04 BP 118/80 12/29/19 17:04 Pulse Ox 97 12/29/19 17:04 Ear Complaint Course/Dx - Course Course Of Treatment: Discussed with patient no s/s of infection. Informed him that based on his history, it is likely he has serous otitis media. Educated on symptomatic treatment and duration of symptoms. Instructed to follow up with ENT referral for persistent or worsening symptoms. Patient voiced understanding and agreed with treatment plan. - Differential Dx/Diagnosis Differential Diagnosis/HQI/PQRI: Otitis Media, URI Provider Diagnosis: Decreased hearing of left ear Discharge ED - Sign-Out/Discharge Documenting (check all that apply): Patient Departure All imaging exams completed and their final reports reviewed: No Studies - Discharge Plan Condition: Stable Disposition: HOME Patient Education Materials: Serous Otitis Media (ED) Referrals: Sandeep Lu MD [Primary Care Provider] - Cortes Luna MD [Medical Doctor] - Additional Instructions: As discussed, there is no sign of infection in the ear. Your symptoms are likely caused by congestion and fluid trapped in the ear. This can take up to a couple months to fully resolve. Continue with flonase and over the counter decongestants. Follow up with the ENT referral listed below if symptoms persist or worsen. - Billing Disposition and Condition Condition: STABLE Disposition: Home - Attestation Statements Provider Attestation: This patient was not seen by me. I was available for consult. Chart reviewed. YVONNE
== END 2019-12-29 17:51 | disposition home or self-care (01) ==
LOC: UCCORT 16:30
DX: H91.8X2 Other specified hearing loss, left ear (principal); R09.89 Other specified symptoms and signs involving the circulatory and respiratory systems
CPT/HCPCS: 99211; G0463